=== PATIENT | female | born 1980 | race Caucasian/White ===

== ENCOUNTER 2017-05-06 06:52 | Emergency (ER) | payer OTHER ==
[~2017-05-06] VITALS: Ht 175.3 cm; Wt 63.1 kg
[2017-05-06] MEDS ORDERED: LIDODERM 5% P1 PATCH TD (09:49)
[2017-05-06] MEDS ORDERED: TRAZODONE HCL50 MG PO (09:51)
[2017-05-06 10:16] VITALS: BP 108/77
[2017-05-07] MEDS ORDERED: ATARAX,VISTARIL50 MG PO (02:21)
[2017-05-08] MEDS ORDERED: PREDNISONE10 MG PO (15:09)
[2017-05-08] MEDS ORDERED: VALIUM5 MG PO (15:09)
[2017-05-09] MEDS ORDERED: ADDERALL XR 2525 MG PO (01:20)
[2017-05-09] MEDS ORDERED: SERTRALINE HCL25 MG PO (01:22)
[2017-05-09] MEDS ORDERED: ESTRADIOL1 EAC9 TD (01:24)
[2017-05-09] MEDS ORDERED: LEVOTHYROXINE100 MCG PO (01:25)
[2017-05-09] MEDS ORDERED: ALPRAZOLAM0.5 MG PO (01:31)
[2017-05-10] MEDS ORDERED: OXYCODONE HCL10 MG PO (09:44)
[2017-05-10] MEDS ORDERED: LIDODERM 5% P1 PATCH TD (09:44)
[2017-05-10] MEDS ORDERED: MS CONTIN,ORAMO15 M1 PO (09:44)
[2017-05-10] MEDS ORDERED: FLEXERIL5 MG PO (09:44)
== END 2017-05-06 10:18 | disposition home or self-care (01) ==
LOC: EME 06:52
DX: G89.29 Other chronic pain (principal); M54.5 Low back pain; F41.9 Anxiety disorder, unspecified; F11.23 Opioid dependence with withdrawal; F43.23 Adjustment disorder with mixed anxiety and depressed mood; Z72.0 Tobacco use
CPT/HCPCS: 90839; 99281; 99284; J3010

== ENCOUNTER 2017-05-07 01:48 | Emergency (ER) | payer OTHER ==
[~2017-05-07] VITALS: Ht 175.3 cm; Wt 63.1 kg
[~2017-05-07 01:48] MED LIST: LIDODERM 5% P1 PATCH TD; TRAZODONE HCL50 MG PO
[2017-05-07] MEDS ORDERED: ATARAX,VISTARIL50 MG PO (02:21)
[2017-05-07 03:13] VITALS: BP 126/82
[2017-05-08] MEDS ORDERED: PREDNISONE10 MG PO (15:09)
[2017-05-08] MEDS ORDERED: VALIUM5 MG PO (15:09)
[2017-05-09] MEDS ORDERED: ADDERALL XR 2525 MG PO (01:20)
[2017-05-09] MEDS ORDERED: SERTRALINE HCL25 MG PO (01:22)
[2017-05-09] MEDS ORDERED: ESTRADIOL1 EAC9 TD (01:24)
[2017-05-09] MEDS ORDERED: LEVOTHYROXINE100 MCG PO (01:25)
[2017-05-09] MEDS ORDERED: ALPRAZOLAM0.5 MG PO (01:31)
[2017-05-10] MEDS ORDERED: LIDODERM 5% P1 PATCH TD (09:44)
[2017-05-10] MEDS ORDERED: FLEXERIL5 MG PO (09:44)
[2017-05-10] MEDS ORDERED: MS CONTIN,ORAMO15 M1 PO (09:44)
[2017-05-10] MEDS ORDERED: OXYCODONE HCL10 MG PO (09:44)
== END 2017-05-07 03:11 | disposition home or self-care (01) ==
LOC: EME 01:48
DX: F11.23 Opioid dependence with withdrawal (principal); G89.29 Other chronic pain; K90.0 Celiac disease; E06.3 Autoimmune thyroiditis; Z72.0 Tobacco use; Z88.0 Allergy status to penicillin; Z88.8 Allergy status to other drugs, medicaments and biological substances
CPT/HCPCS: 99281; 99282; J1885; Q0177

== ENCOUNTER 2017-05-21 10:33 | Day surgery (SDC) | payer OTHER ==
[~2017-05-21] VITALS: Ht 175.3 cm; Wt 76.4 kg
[~2017-05-21 10:33] MED LIST changes: +ADDERALL XR 2525 MG PO; +ALPRAZOLAM0.5 MG PO; +ATARAX,VISTARIL50 MG PO; +ESTRADIOL1 EAC9 TD; +FLEXERIL5 MG PO; +LEVOTHYROXINE100 MCG PO; +MS CONTIN,ORAMO15 M1 PO; +OXYCODONE HCL10 MG PO; +PREDNISONE10 MG PO; +SERTRALINE HCL25 MG PO; +VALIUM5 MG PO
== END 2017-05-21 12:01 | disposition home or self-care (01) ==
LOC: PAIN 10:33 → SDC 11:00 → PAIN 12:01
DX: M47.816 Spondylosis without myelopathy or radiculopathy, lumbar region (principal); M54.5 Low back pain; G89.29 Other chronic pain; M51.36 Other intervertebral disc degeneration, lumbar region; F17.200 Nicotine dependence, unspecified, uncomplicated; Z85.43 Personal history of malignant neoplasm of ovary; Z88.0 Allergy status to penicillin; F41.8 Other specified anxiety disorders; E06.3 Autoimmune thyroiditis; Z79.891 Long term (current) use of opiate analgesic
CPT/HCPCS: J1030; J2250; J3010; S0020

== ENCOUNTER 2017-05-28 10:25 | Day surgery (SDC) | payer OTHER | END 2017-05-28 12:07 | disposition home or self-care (01) | LOC: PAIN 10:25 → SDC 11:00 → PAIN 11:00 | DX: M47.816 Spondylosis without myelopathy or radiculopathy, lumbar region (principal); M51.36 Other intervertebral disc degeneration, lumbar region; M51.26 Other intervertebral disc displacement, lumbar region; F17.200 Nicotine dependence, unspecified, uncomplicated; F98.8 Other specified behavioral and emotional disorders with onset usually occurring in childhood and adolescence; E06.3 Autoimmune thyroiditis; Z88.2 Allergy status to sulfonamides | CPT/HCPCS: J1030; J2250; J3010; S0020 ==

== ENCOUNTER 2017-06-12 19:35 | Emergency (ER) | payer OTHER ==
[~2017-06-12] VITALS: Ht 175.3 cm; Wt 139.0 kg
[2017-06-13 00:04] LABS: EOSINOPHIL (%) 0.9 % (0-5); EOSINOPHIL COUNT 0.1 K/uL (0-0.3); HEMATOCRIT 35.8 % (36.0-46.0); IMMATURE GRANULOCYTE (%) 0.2 % (0.0-0.7); INSTRUMENT ABS NEUTROPHIL CT 5.8 K/uL; LYMPHOCYTE COUNT 1.6 K/uL (1.0-2.8); MCH 25.2 PG (29.0-34.0); MCHC 32.4 G/DL (30.0-36.0); MCV 77.7 FL (83-99); MEAN PLAT.VOLUME 8.9 uM^3 (9.5-12.4); MONOCYTE (%) 6.5 % (3-12); MONOCYTE COUNT 0.5 K/uL (0-0.8); NEUTROPHIL (%) 72.1 % (45-76); NEUTROPHIL COUNT 5.8 K/uL (1.8-6.4); PLATELET COUNT 272 K/uL (156-360); RBC DIS.WIDTH-CV 15.9 % (11.8-14.6); RED BLOOD COUNT 4.61 M/uL (3.80-5.20)
[2017-06-13 00:13] LABS: CHLORIDE 108 mEq/L (99-109); POTASSIUM 3.7 mEq/L (3.7-5.4); SODIUM 141 mEq/L (136-147)
[2017-06-13 00:15] LABS: GLUCOSE 90 mg/dL (70-99)
[2017-06-13 00:16] LABS: ANION GAP 11 MEQ/L (2-14)
[2017-06-13 00:17] LABS: TOTAL BILIRUBIN 0.3 mg/dL (0.0-1.0)
[2017-06-13 00:19] LABS: ALKALINE PHOSPHATASE 54 IU/L (3-129); GFR ESTIMATE (CALCULATED) > 59 mL/min/
[2017-06-13 00:20] LABS: UREA NITROGEN (BUN) 11 mg/dL (9-23)
[2017-06-13 01:27] LABS: ADD MIUA? YES; BILIRUBIN NEGATIVE; BLOOD NEGATIVE; COLOR YELLOW ((YELLOW)); GLUCOSE (STRIP) NEGATIVE; KETONES 5; LEUKOCYTES NEGATIVE; NITRITE NEGATIVE; PROTEIN (STRIP) NEGATIVE; SPECIFIC GRAVITY 1.019 (1.000-1.030); UROBILINOGEN 0.2 MG/DL (0.2-1.0)
[2017-06-13 01:31] LABS: BACTERIA RARE /HPF; EPITHELIAL CELLS 1+ /HPF; MUCUS TRACE /LPF; RED BLOOD CELLS 0-5 /HPF (0-5); UCUL ADDED? NO; WHITE BLOOD CELLS 0-5 /HPF (0-5)
[2017-06-13 02:15] VITALS: BP 124/73
== END 2017-06-13 02:18 | disposition home or self-care (01) ==
LOC: EME 19:35
PROVIDERS: Emergency Medicine
DX: E86.0 Dehydration (principal); G89.29 Other chronic pain; M54.5 Low back pain; E06.3 Autoimmune thyroiditis; K90.0 Celiac disease; F17.200 Nicotine dependence, unspecified, uncomplicated; Z90.710 Acquired absence of both cervix and uterus; Z88.1 Allergy status to other antibiotic agents; Z88.8 Allergy status to other drugs, medicaments and biological substances
CPT/HCPCS: 80053; 81003; 83735; 85025; 99281; 99285; J1885; J7030

== ENCOUNTER 2017-06-20 07:52 | Emergency (ER) | payer OTHER ==
[~2017-06-20] VITALS: Ht 175.3 cm; Wt 69.9 kg
[2017-06-20] MEDS ORDERED: ALPRAZOLAM1 MG PO (08:30)
[2017-06-20] MEDS ORDERED: OXYCODONE HCL10 MG PO (08:30)
[2017-06-20] MEDS ORDERED: ADDERALL XR 2525 MG PO (08:31)
[2017-06-20 09:56] VITALS: BP 100/61
== END 2017-06-20 09:56 | disposition home or self-care (01) ==
LOC: EME 07:52
DX: M54.5 Low back pain (principal); G89.29 Other chronic pain; E06.3 Autoimmune thyroiditis; K90.0 Celiac disease; Z72.0 Tobacco use; Z88.8 Allergy status to other drugs, medicaments and biological substances; Z88.1 Allergy status to other antibiotic agents
CPT/HCPCS: 99281; 99283; J2270

== ENCOUNTER 2017-11-05 10:14 | Day surgery (SDC) | payer OTHER ==
[~2017-11-05] VITALS: Ht 175.3 cm; Wt 63.0 kg
[~2017-11-05 10:14] MED LIST changes: +ALPRAZOLAM1 MG PO; +CLIMARA0.075 MG TD; +DOLOPHINE HCL5 MG PO; +OXYCODONE-ACET1 EACH PO; +SYNTHROID25 MCG PO; +XANAX1 MG PO; +ZOLOFT50 MG PO
== END 2017-11-05 11:35 | disposition home or self-care (01) ==
LOC: PAIN 10:14
DX: M47.816 Spondylosis without myelopathy or radiculopathy, lumbar region (principal); M51.36 Other intervertebral disc degeneration, lumbar region; M51.26 Other intervertebral disc displacement, lumbar region; E06.3 Autoimmune thyroiditis; F98.8 Other specified behavioral and emotional disorders with onset usually occurring in childhood and adolescence; F17.200 Nicotine dependence, unspecified, uncomplicated; Z88.0 Allergy status to penicillin
CPT/HCPCS: J1030; J2250; S0020

== ENCOUNTER 2017-11-08 23:32 | Emergency (ER) | payer OTHER ==
[~2017-11-08] VITALS: Ht 175.3 cm; Wt 64.2 kg
[2017-11-08 23:59] LABS: HEMATOCRIT 35.8 % (36.0-46.0); HEMOGLOBIN 11.8 G/DL (11.9-15.5); MCH 26.5 PG (29.0-34.0); MCV 80.4 FL (83-99); PLATELET COUNT 338 K/uL (156-360); RBC DIS.WIDTH-CV 15.1 % (11.8-14.6); RBC DIS.WIDTH-SD 43.8 % (39-53); RED BLOOD COUNT 4.45 M/uL (3.80-5.20); WHITE BLOOD COUNT 8.1 K/uL (4.1-10.2)
[2017-11-09 00:09] LABS: CHLORIDE 103 mEq/L (99-109); POTASSIUM 3.4 mEq/L (3.7-5.4); SODIUM 142 mEq/L (136-147)
[2017-11-09 00:11] LABS: GLUCOSE 100 mg/dL (70-99)
[2017-11-09 00:15] LABS: CREATININE 0.8 mg/dL (0.6-1.3); GFR ESTIMATE (CALCULATED) > 59 mL/min/
[2017-11-09 00:16] LABS: UREA NITROGEN (BUN) 18 mg/dL (9-23)
[2017-11-09 00:19] LABS: TROP-I INTERPRETATION NEGATIVE; TROPONIN-I < 0.01 ng/mL (0.0-0.30)
[2017-11-09 03:47] LABS: TROP-I INTERPRETATION NEGATIVE; TROPONIN-I < 0.01 ng/mL (0.0-0.30)
[2017-11-09 05:01] VITALS: BP 116/71
== END 2017-11-09 05:20 | disposition home or self-care (01) ==
LOC: EME 23:32
PROVIDERS: Emergency Medicine
DX: R07.89 Other chest pain (principal); M41.9 Scoliosis, unspecified; E06.3 Autoimmune thyroiditis; G89.29 Other chronic pain; K90.0 Celiac disease; F17.200 Nicotine dependence, unspecified, uncomplicated; Z88.0 Allergy status to penicillin; Z88.8 Allergy status to other drugs, medicaments and biological substances; Z79.891 Long term (current) use of opiate analgesic
CPT/HCPCS: 71046; 71275; 72129; 80048; 84484; 85027; 93005; 99281; 99284; J1885; J7030

== ENCOUNTER 2017-11-22 13:40 | Day surgery (SDC) | payer OTHER ==
[~2017-11-22] VITALS: Ht 175.3 cm; Wt 63.0 kg
== END 2017-11-22 15:30 | disposition home or self-care (01) ==
LOC: PAIN 13:40 → SDC 13:45 → PAIN 13:45
DX: M47.816 Spondylosis without myelopathy or radiculopathy, lumbar region (principal); M62.838 Other muscle spasm; R10.9 Unspecified abdominal pain; F17.200 Nicotine dependence, unspecified, uncomplicated; E06.3 Autoimmune thyroiditis; Z88.2 Allergy status to sulfonamides
CPT/HCPCS: J1030; J1885; J2250; S0020